=== PATIENT | female | born 1965 | race Caucasian/White ===

== ENCOUNTER 2019-01-16 07:56 | Emergency (ER) | payer BC ==
--- OUTSIDE RECORDS SUMMARY | 2019-01-16 08:24 | XMS REPORT | Continuity of Care Document ---
:1965 External Reference #:[id number] Author Name Jojo Garcia, RIKKI Address [address] [place] [id number] Care Team Providers Name Role Phone Esau Bhagat MD Primary Care Physician Unavailable Payers Date Identification Numbers Payment Provider Subscriber Policy Number: [id number] Destiny Patel PayID: [id number] [address] [place] [address] Advance Directives Description No Information Available Problems Description No Active Problems Family History Date Family Member(s) Observation Comments General Breast Cancer mom Father unknown Mother Alive Social History Type Date Description Comments Sex Female Education Highest level completed, Associates Degree Marital Status Legal Status: Tobacco Use Reviewed: 12/27/18 Never Smoked Cigars Tobacco Use Reviewed: 12/27/18 Never Smoked A Pipe Smoking Status Reviewed: 12/27/18 Never Smoked A Pipe Tobacco Use Reviewed: 12/27/18 Never Used Smokeless Tobacco ETOH Use Occasionally consumes alcohol Recreational Drug Use Teaching provided regarding Naloxone/Narcan Training Available At [facility] Tobacco Use Reviewed: 12/27/18 Patient has never smoked Recreational Drug Use Sporadically uses Marijuana Tattoo/Piercing Tattoos professionally done Condom Use Never UNKNOWN 12/27/2018 Never E-Cigarette User Allergies, Adverse Reactions, Alerts Date Description Reaction Status Severity Comments 06/14/2018 Dust Active 06/14/2018 Animals Active Medications Medication Date Status Form Strength Qnty SIG Indications Ordering Provider Metronidazole Active Tablets 500mg 14tabs one tab by N76.0 Jojo Jeff 019 mouth Radha, 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 no etoh Advair HFA Active Unknown 000 Symbicort Active Unknown 000 Valacyclovir HCL Hx Tablets 500mg 6tabs 1 by mouth R21 Jojo Jeff 018 - twice a Radha, day for 3 PAID SEARCH MANAGER 019 days upon onset of symptoms Ibuprofen 200 00/00/0 Hx Unknown 000 - 019 Immunizations Description No Information Available Vital Signs Date Vital Result Comment 12/27/2018 3:11pm BP Systolic 135 mmHg electronic BP Diastolic 69 mmHg electronic BP Systolic Recheck 102 mmHg manual BP Diastolic Recheck 62 mmHg manual Height 62 inches 5'2" Weight 170.00 lb BMI (Body Mass Index) 31.1 kg/m2 06/14/2018 3:48pm BP Systolic 122 mmHg BP Diastolic 80 mmHg Height 62 inches 5'2" Weight 161.00 lb BMI (Body Mass Index) 29.4 kg/m2 Results Test Date Facility Test Result H/L Range Note Wet Prep.... 12/27/2018 [facility] WBC Smear few Clue Cells Vag Fluid Wet Prep many Antonella Wet Prep 0 Lactobacillus Wet Prep few Whiff Wet Prep + Bacteria Wet Prep n/a PH Wet Prep 7.5 Misc Other Test no trich seen Laboratory test finding 12/27/2018 [facility] HIV Rapid... non reactive Herpes Simplex Virus Culture W/RFX 06/14/2018 [facility] NOT GIVEN Type HSV Culture NOT ISOLATED Not Isolated Laboratory test finding 06/14/2018 [facility] Hep C Rapid Test non reactive Procedures Description No Information Available Encounters Description No Information Available Plan of Treatment 12/27/2018 - Jojo Garcia, NPN76.0 Acute vaginitisNew Medication: Metronidazole 500 mg - one tab by mouth twice daily x 7 days no etohComments:+ whiff test and multiple clue cells on wet prep. Rx metronidazole- reviewed use of, side effects and precautions (including no etoh) with patient who states understanding. Instructed patient on pelvicrest x 2 weeks.Z11.3 Encounter for screening for infections with a predominantly sexual mode of transmissionComments:Reviewed STD risks and prevention with patient. Patient states understanding.Follow up:Follow up if any further symptoms.Z11.4 Encounter for screening for human immunodeficiency wnjleX68.4 Encounter for screening for malignant neoplasm of [id number] Excessive and frequent menstruation with irregular cycleComments:Patient is likely experiencing perimenopausal changes. 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 More frequent menses are not always normal (and could be a sign of uterine Ca). Recommended pelvic ultrasound to evaluation thickness of EM. She declines and states that she has not had menses now for 2 months. States that if menses return and are frequent again, she will RTO.
[2019-01-16 08:33] VITALS: BP 131/73
--- NOTE | 2019-01-16 09:34 | ED ---
HPI Chest Pain - HPI Summary HPI Summary: `53 yr old female with sudden onset of left scapular chest pain this morning at 8 am. She had finished loading wood stove. She was sitting and all of a sudden experienced sharp, severe sudden pain in her left back near medial scapula. Pain worse with deep breath. She has not been ill. No fever, chills , cough. She feels short of breath. Denies smoking. Denies family history of blood clots to lung, legs. - History of Current Complaint Chief Complaint: UCRespiratory Time Seen by Provider: 01/16/19 08:40 Pain Intensity: 9 - Allergy/Home Medications Allergies/Adverse Reactions: Allergies Allergy/AdvReac Type Severity Reaction Status Date / Time No Known Allergies Allergy Verified 01/16/19 08:26 Home Medications: Home Medications Budesonide/Formote 160/4.5(NF) [Symbicort 160/4.5 (NF)] 1 puff INH BID 01/16/19 [History Confirmed 01/16/19] Fluticasone-Salmeterol 250-50* [Advair Diskus 250-50*] 1 puff INH DAILY [History Confirmed 01/16/19] metroNIDAZOLE * [Flagyl] 500 mg PO BID 01/16/19 [History Confirmed 01/16/19] PMH/Surg Hx/FS Hx/Imm Hx Respiratory History: Reports: Hx Asthma - Surgical History Surgery Procedure, Year, and Place: x3 Infectious Disease History: No Infectious Disease History: Denies: Traveled Outside the [place] in Last 30 Days - Family History Known Family History: Positive: None Family History: denies fam history of blood clots. - Social History Alcohol Use: None Substance Use Type: Reports: None Smoking Status (MU): Never Smoked Tobacco Review of Systems Constitutional: Negative Positive: Chest Pain Positive: Shortness Of Breath All Other Systems Reviewed And Are Negative: Yes Physical Exam Triage Information Reviewed: Yes Vital Signs On Initial Exam: Initial Vitals Temp Pulse Resp BP Pulse Ox 97.5 F 69 15 131/73 100 01/16/19 08:28 01/16/19 08:28 01/16/19 08:28 01/16/19 08:28 01/16/19 08:28 Vital Signs Reviewed: Yes Appearance: Positive: Well-Appearing, No Pain Distress Skin: Positive: Warm, Skin Color Reflects Adequate Perfusion Head/Face: Positive: Normal Head/Face Inspection Eyes: Positive: EOMI ENT: Positive: Normal ENT inspection Neck: Positive: Nontender Respiratory/Lung Sounds: Positive: Clear to Auscultation, Breath Sounds Present Cardiovascular: Positive: RRR. Negative: Murmur Abdomen Description: Positive: Nontender Musculoskeletal: Positive: Strength/ROM Intact Neurological: Positive: Sensory/Motor Intact, Alert, Oriented to Person Place, Time, CN Intact II-III Psychiatric: Positive: Normal - Guero Coma Scale Best Eye Response: 4 - Spontaneous Best Motor Response: 6 - Obeys Commands Best Verbal Response: 5 - Oriented Coma Scale Total: 15 Diagnostics - Vital Signs Vital Signs Temp Pulse Resp BP Pulse Ox 01/16/19 08:28 97.5 F 69 15 131/73 100 - Laboratory Lab Statement: Any lab studies that have been ordered have been reviewed, and results considered in the medical decision making process. - Radiology chest pa lat Radiology Interpretation Completed By: Radiologist - NAD - EKG 01/16/19 Cardiac Rate: Bradycardia - 59 EKG Rhythm: Sinus Bradycardia - no stemi ST Segment: Normal Ectopy: None Chest Pain Course/Dx - Course Course Of Treatment: 53 yr old with pleuritic chest pain and sob. She signed out AMA refused ambulance transport to the ER for further workup. - Diagnoses Provider Diagnoses: Chest pain, Shortness of breath Discharge - Sign-Out/Discharge Documenting (check all that apply): Patient Departure All imaging exams completed and their final reports reviewed: Yes - Discharge Plan Condition: Good Disposition: AGAINST MEDICAL ADVICE Referrals: Esau Bhagat MD [Primary Care Provider] - - Billing Disposition and Condition Condition: GOOD Disposition: Against Medical Advice
== END 2019-01-16 09:34 | disposition left against medical advice (07) ==
LOC: UCCORT 07:56
DX: R07.89 Other chest pain (principal); R06.02 Shortness of breath; M54.89 Other dorsalgia; J45.909 Unspecified asthma, uncomplicated; Z79.899 Other long term (current) drug therapy
CPT/HCPCS: 71046; 93005; 99202; G0463